=== PATIENT | male | born 1975 | race African-American/Black ===

== ENCOUNTER 2016-05-14 20:55 | Emergency (ER) | payer SELFPAY ==
--- NOTE | ~2016-05-14 | CT71 ---
[facility] A Service of [facility] & [facility] RADIOLOGY TEXT RESULTS PATIENT: LUKASZ SIERRA LOCATION: [facility] : [birth year] UNIT #: [id number] AGE: [address]: Babita Schilling MD SEX: M ORDER DR: [id number] [facility]. [place], [place] [address] [id number] MR#: [id number] Acc #: [id number] NAME: LUKASZ SIERRA. : 1975 SEX: M STUDY DATE/TIME: 05/14/2016 22:00 UNIT: [facility] ROOM: STUDY DESCRIPTION: CT Head Wo Contrast Attending Physician: Babita Schilling M.D. Ordering Physician: Babita Schilling M.D. Primary Care Physician: [facility], [facility]. MEDICAL IMAGING REPORT This report is preliminary unless electronic signature is present EXAM CT head without IV contrast COMPARISON None INDICATION 41-year-old male with dizziness and diaphoresis when standing today. Near-syncope today. History of hypertension. TECHNIQUE This CT exam was performed with one or more of the following radiation dose reduction techniques: automatic exposure control, adjustment of mA and/or kV according to patient size, and iterative reconstruction. FINDINGS There are a few prominent right-sided occipital lymph nodes, not pathologic enlarged. No acute fractures or suspicious osseous lesions. Mastoid air cells, middle ears and visualized paranasal sinuses are well-aerated. Normal cerebral volume. No mass effect. No abnormal extraaxial fluid collection. No acute intracranial hemorrhage. No evidence of acute ischemia. There is subcutaneous gas within the bilateral belt sander stone spaces extending into the temporal fossae bilaterally with some gas seen in the region of the left temporal extraaxial space in the region of the cavernous sinus, likely external to it. IMPRESSION There is bilateral subcutaneous gas tracking along the musculature in the belt sander stone space and into the bilateral temporal fossae along the musculature. As well there are a few foci of gas along the medial aspect of the temporal lobe near the cavernous sinus on the left. This is of uncertain etiology. Clinical correlation for possible IV bolus with internal gas is recommended. Conceivably this could possibly be STS. [facility] A Service of [facility] & [facility] RADIOLOGY TEXT RESULTS PATIENT: LUKASZ SIERRA LOCATION: [facility] : [birth year] UNIT #: [id number] AGE: [address]: Babita Schilling MD SEX: M ORDER DR: introduced by an open IV line if this has been placed. No evidence of abscess or other acute intracranial abnormality. Dictated by... Jorge Walsh M.D. THIS IS AN ELECTRONICALLY VERIFIED REPORT Jorge Walsh M.D. at 05/17/2016 8:13 AM Lo TD: 05/15/2016 08:38 JOB #: [id number] MEDICAL IMAGING REPORT COPY
--- NOTE | ~2016-05-14 | EKG ---
PATIENT: LUKASZ SIERRA UNIT #: [id number] Ventricular Rate: 53 BPM Atrial Rate: 53 BPM P-R Interval: 152 ms QRS Duration: 86 ms Q-T Interval: 420 ms QTC Calculation(Bezet): 394 ms P [place]: 29 degrees Calculated R [place]: 11 degrees Calculated T [place]: 83 degrees Diagnosis Line: Sinus bradycardia Diagnosis Line: Nonspecific T wave abnormality Diagnosis Line: Abnormal ECG Diagnosis Line: No previous ECGs available Diagnosis Line: Confirmed by BLAINE MONDRAGON MD ([id number]) on 05/15/2016 Diagnosis Line: 7:08:17 AM INTERPRETING MD: GIANCARLO PENA
[2016-05-14 21:26] LABS: BASOPHIL% 0.3 % (0-2.5); EOSINOPHIL# 0.1 X10e3 (0-0.7); EOSINOPHIL% 1.1 % (0.0-7.0); HEMATOCRIT 44.1 % (38.0-50.0); HEMOGLOBIN 14.4 gm/dL (13.0-16.0); LYMPHOCYTE% 13.4 % (17.0-45.0); MEAN CELL VOLUME 91.7 FL (83-96); MEAN CORPUSCULAR HEMOGLOBIN 29.9 PG (28-34); MEAN CORPUSCULAR HGB CONC 32.6 g/dL (30-36); MEAN PLATELET VOLUME 10.1 FL (6.5-11.5); MONOCYTE# 0.7 X10e3 (0-1.0); MONOCYTE% 8.7 % (3.0-12.0); NEUTROPHIL# 5.9 X10e3 (1.5-7.1); NEUTROPHIL% 76.5 % (40-75); PLATELET COUNT 166 X10e3 (140-420); RED CELL DISTRIBUTION WIDTH 13.9 % (11.0-15.5); WHITE BLOOD COUNT 7.7 X10e3 (4.0-10.5)
[2016-05-14 21:32] LABS: DIFF IND NO
[2016-05-14 21:57] LABS: ALBUMIN SERUM 4.1 g/dL (3.5-5.0); ALKALINE PHOSPHATASE 66 U/L (32-92); ALT (SGPT) 16 U/L (10-40); AST (SGOT) 21 U/L (10-42); BILIRUBIN, DIRECT 0.1 mg/dL (0.0-0.2); BILIRUBIN,INDIRECT 0.5 mg/dL (0.0-0.9); BILIRUBIN,TOTAL 0.6 mg/dL (0.2-2.0); BLOOD UREA NITROGEN 13 mg/dL (9-23); BUN/CREATININE RATIO 14.44; CALCIUM SERUM 8.9 mg/dL (8.4-10.2); CARBON DIOXIDE 32 mmol/L (22-31); CHLORIDE 102 mmol/L (100-111); CREATININE SERUM 0.9 mg/dL (0.6-1.4); GLOM FILT RATE Estimated ABOVE60 mL/min (>60); GLUCOSE FASTING 103 mg/dL (70-110); MAGNESIUM 2.2 mg/dL (1.6-3.0); POTASSIUM 3.7 mmol/L (3.5-5.1); PROTEIN TOTAL SERUM 7.7 g/dL (6.0-8.3); SODIUM 141 mmol/L (135-145)
[2016-05-14 22:11] LABS: ALCOHOL BLOOD <5 mg/dL (0)
[2016-05-14 23:33] LABS: POC - CKMB 2.4 ng/mL (0.0-7.9); POC - TROPONIN <0.05 ng/mL (<=0.05)
[2016-05-14 23:38] LABS: POC - CKMB 1.7 ng/mL (0.0-7.9); POC - TROPONIN <0.05 ng/mL (<=0.05)
== END 2016-05-15 00:10 | disposition home or self-care (01) ==
LOC: CED 20:55
PROVIDERS: Student in an Organized Health Care Education/Training Program
DX: R55 Syncope and collapse (principal)
CPT/HCPCS: 36415; 70450; 80048; 80076; 82553; 83735; 84484; 85025; 93005; 96361; 96374; 99284; G0480; J2405

== ENCOUNTER 2016-06-17 04:37 | Emergency (ER) | payer SELFPAY | END 2016-06-17 05:00 | disposition home or self-care (01) | LOC: CED 04:37 | DX: M25.562 Pain in left knee (principal); I10 Essential (primary) hypertension | CPT/HCPCS: 99282 ==